=== PATIENT | female | born 1955 | race Caucasian/White ===

== ENCOUNTER 2017-05-03 14:54 | Observation (INO) | payer BC ==
[2017-05-03] MEDS ORDERED: Sodium Chloride 0.9% 1,000 ML IV SCH (15:00)
[2017-05-03] MEDS ORDERED: Aspirin 81 MG Tab.Chew PO ONE (15:00)
--- NOTE | 2017-05-03 15:20 | EDM.PDOC ---
ED HPI GENERAL MEDICAL PROBLEM - General Chief Complaint: Chest Pain Stated Complaint: PT HAS CHEST PAINS Time Seen by Provider: 05/03/17 14:59 Source of Information: Reports: Patient History Limitations: Reports: No Limitations - History of Present Illness INITIAL COMMENTS - FREE TEXT/NARRATIVE: HISTORY AND PHYSICAL: History of present illness: [61-year-old female with a history of high blood pressure high cholesterol with known coronary artery disease and a stent placed [address] Burch at [facility], now presents to the emergency department complaining of chest pain. Prior to arrival patient had left parasternal chest pressure associated with severe nausea and mild diaphoresis. She was not short of breath. She denies pleuritic pain productive cough or fever. She has no history of blood clots are quite hypercoagulability. She has no leg swelling asymmetry or pain. Prior to episode of pain before presentation to the hospital, patient had no prodromal symptoms and was feeling well. His been compliant with her baby aspirin daily and her Effient.] Review of systems: As per history of present illness and below otherwise all systems reviewed and negative. Past medical history: As per history of present illness and as reviewed below otherwise noncontributory. Surgical history: As per history of present illness and as reviewed below otherwise noncontributory. Social history: No reported history of drug or alcohol abuse. Family history: As per history of present illness and as reviewed below otherwise noncontributory. Physical exam: HEENT: Atraumatic, normocephalic, pupils reactive, negative for conjunctival pallor or scleral icterus, mucous membranes moist, throat clear, neck supple, nontender, trachea midline. Lungs: Clear to auscultation, breath sounds equal bilaterally, chest nontender. Heart: S1S2, regular, negative for clicks, rubs, or JVD. Abdomen: Soft, nondistended, nontender. Negative for masses or hepatosplenomegaly. Negative for costovertebral tenderness. Pelvis: Stable nontender. Genitourinary: Deferred. Rectal: Deferred. Extremities: Atraumatic, negative for cords or calf pain. Neurovascular unremarkable. Neuro: Awake, alert, oriented. Cranial nerves grossly unremarkable. Cerebellum unremarkable. Motor and sensory unremarkable throughout. Exam nonfocal. Diagnostics: [EKG with normal sinus rhythm at 68 normal axis no STEMI Chest x-ray unremarkable interpreted by me] Therapeutics: [Aspirin given en route] Impression: [Aspirin] Plan: [Signs and symptoms consistent with chest pain possible cardiac etiology in a 61 -year-old female with a known history of coronary artery disease 2 days status post stent placement. She is currently pain-free and comfortable appearing. EKG unremarkable nonspecific ST and T-wave findings. Workup pending. Anticipate observation telemetry admission with serial enzymes and communication with patient's manager supplier as needed. Workup unremarkable. Patient needs to be well appearing and pain-free. Case discussed with Dr. Burch patient's manager supplier who is very clear that he agrees the patient does not need to be transferred at this time. Discussed with Dr. Luis Montesinos [facility] visual presentation manager who is aware history and findings and agrees with observation admission for serial cardiac enzymes further workup and treatment as needed. Definitive disposition and diagnosis as appropriate pending reevaluation and review of above. Left Chest Pain Score (Numeric/FACES): 1 - Related Data Allergies Allergy/AdvReac Type Severity Reaction Status Date / Time cortisone Allergy Intermediate Blisters Verified 05/03/17 15:37 Sulfa (Sulfonamide Allergy Hives Verified 05/03/17 15:37 Antibiotics) ATROPINE Allergy Intermediate Tachycardia Uncoded 11/11/16 13:38 Home Meds: Home Meds Calcium Carbonate/Vitamin D3 [Calcium 600-Vit D3 800 Tab] 1 each PO BEDTIME 06/20 [History] Carvedilol [Coreg] 12.5 mg PO BID 07/13/16 [History] Cholecalciferol (Vitamin D3) [D-2000] 2,000 unit PO BEDTIME 07/13/16 [History] Multivitamin [Daily Multiple Vitamin] 1 tab PO DAILY 07/13/16 [History] Nitroglycerin [Nitrostat] 0.4 mg SL Q5M PRN 07/13/16 [History] Ubidecarenone/Vitamin E Mixed [Plj81-Wan E 200 mg-20 Unit Sfg] 1 each PO DAILY 07/13/16 [History] atorvaSTATin [Lipitor] 40 mg PO BEDTIME 07/13/16 [History] Albuterol [Ventolin HFA] 2 puff INH QID PRN 05/03/17 [History] Aspirin 81 mg PO BEDTIME 05/03/17 [History] Famotidine 40 mg PO DAILY 05/03/17 [History] Isosorbide Mononitrate [Imdur] 30 mg PO DAILY 05/03/17 [History] Prasugrel HCl [Effient] 10 mg PO DAILY 05/03/17 [History] Past Medical History Cardiovascular History: Reports: High Cholesterol, Hypertension, Stents Psychiatric History: Reports: None - Infectious Disease History Infectious Disease History: Reports: Measles - Past Surgical History Cardiovascular Surgical History: Reports: Carotid Stents, Coronary Artery Bypass Musculoskeletal Surgical History: Reports: Arthroscopic Knee, Other (See Below) Social & Family History - Family History Family Medical History: Noncontributory - Tobacco Use Smoking Status *Q: Never Smoker Second Hand Smoke Exposure: No - Caffeine Use Caffeine Use: Reports: None - Recreational Drug Use Recreational Drug Use: No ED ROS GENERAL - Review of Systems Review Of Systems: See Below (History of present illness) ED EXAM, GENERAL - Physical Exam Exam: See Below (History of present illness) Course - Vital Signs Last Recorded V/S: Last Vital Signs Temp 36.6 C 05/03/17 15:17 Pulse 74 05/03/17 15:17 Resp 18 05/03/17 15:17 BP 167/87 H 05/03/17 15:17 Pulse Ox 96 05/03/17 15:17 - Orders/Labs/Meds Orders: Active Orders 24 hr Category Date Time Status EKG 12 Lead [EKG Documentation Completion] [RC] STAT Care 05/03/17 15:00 Ordered Chest 1V Frontal [CR] Stat Exams 05/03/17 15:00 Ordered Sodium Chloride 0.9% @ 125 MLS/HR (1,000ml) Med 05/03/17 15:00 Ordered Sodium Chloride 0.9% [Normal Saline] 1,000 ml IV ASDIRECTED Peripheral IV Insertion Adult [OM.PC] Stat Oth 05/03/17 15:00 Ordered Medication Orders Sodium Chloride (Normal Saline) 1,000 mls @ 125 mls/hr IV ASDIRECTED MAIA Last Admin: 05/03/17 15:15 Dose: 125 mls/hr Labs: Laboratory Tests 05/03/17 05/03/17 05/03/17 Range/Units 15:12 15:12 15:12 WBC 8.12 (4.0-11.0) K/uL RBC 4.44 (4.30-5.90) M/uL Hgb 13.0 (12.0-16.0) g/dL Hct 38.9 (36.0-46.0) % MCV 87.6 (80.0-98.0) fL MCH 29.3 (27.0-32.0) pg MCHC 33.4 (31.0-37.0) g/dL RDW Std Deviation 42.5 (28.0-62.0) fl RDW Coeff of Izabella 13 (11.0-15.0) % Plt Count 227 (150-400) K/uL MPV 9.30 (7.40-12.00) fL Neut % (Auto) 77.0 (48.0-80.0) % Lymph % (Auto) 16.6 (16.0-40.0) % Traill % (Auto) 6.0 (0.0-15.0) % Eos % (Auto) 0.2 (0.0-7.0) % Baso % (Auto) 0.2 (0.0-1.5) % Neut # (Auto) 6.2 H (1.4-5.7) K/uL Lymph # (Auto) 1.4 (0.6-2.4) K/uL [place]ill # (Auto) 0.5 (0.0-0.8) K/uL Eos # (Auto) 0.0 (0.0-0.7) K/uL Baso # (Auto) 0.0 (0.0-0.1) K/uL Nucleated RBC % 0.0 /100WBC Nucleated RBCs # 0 K/uL Sodium 141 (136-146) mmol/L Potassium 4.0 (3.5-5.1) mmol/L Chloride 107 (98-110) mmol/L Carbon Dioxide 26 (21-31) mmol/L BUN 9 (6.0-23.0) mg/dL Creatinine 0.8 (0.6-1.5) mg/dL Est Cr Clr Drug Dosing 66.45 mL/min Estimated GFR (MDRD) > 60.0 ml/min Glucose 124 H (60-110) mg/dL Calcium 9.5 (8.8-10.8) mg/dL Total Bilirubin 0.7 (0.1-1.5) mg/dL AST 20 (5-40) IU/L ALT 21 (8-54) IU/L Alkaline Phosphatase 91 (40-150) Troponin I < 0.10 (0.0-0.29) NG/ML Total Protein 7.3 (6.0-8.0) g/dL Albumin 4.0 (3.4-4.8) g/dL Globulin 3.3 (2.0-3.5) g/dL Albumin/Globulin Ratio 1.2 L (1.3-2.8) Meds: Medications Generic Name Dose Route Start Last Admin Trade Name Radha PRN Reason Stop Dose Admin Sodium Chloride 1,000 mls @ 125 mls/hr 05/03/17 15:00 05/03/17 15:15 Normal Saline IV 125 mls/hr ASDIRECTED MAIA Administration Discontinued Medications Generic Name Dose Route Start Last Admin Trade Name Radha PRN Reason Stop Dose Admin Aspirin 324 mg 05/03/17 15:00 05/03/17 15:11 Aspirin PO 05/03/17 15:01 Not Given ONETIME ONE Departure - Departure Time of Disposition: 15:22 Disposition: Refer to Observation Condition: Good Clinical Impression: Chest pain - Discharge Information - My Orders Last 24 Hours: My Active Orders 05/03/17 15:00 EKG 12 Lead [EKG Documentation Completion] [RC] STAT Chest 1V Frontal [CR] Stat Sodium Chloride 0.9% @ 125 MLS/HR (1,000ml) Sodium Chloride 0.9% [Normal Saline ] 1,000 ml IV ASDIRECTED Peripheral IV Insertion Adult [OM.PC] Stat - Assessment/Plan Last 24 Hours: My Active Orders 05/03/17 15:00 EKG 12 Lead [EKG Documentation Completion] [RC] STAT Chest 1V Frontal [CR] Stat Sodium Chloride 0.9% @ 125 MLS/HR (1,000ml) Sodium Chloride 0.9% [Normal Saline ] 1,000 ml IV ASDIRECTED Peripheral IV Insertion Adult [OM.PC] Stat
[2017-05-03 15:39] LABS: CHLORIDE,CL 107 mmol/L (98-110); SODIUM,NA 141 mmol/L (136-146)
--- NOTE | 2017-05-03 20:11 | PCM.HP ---
H&P History of Present Illness - General Admit Problem/Dx: Admission Diagnosis/Problem Admission Diagnosis/Problem Chest pain - History of Present Illness Initial Comments - Free Text/Narative: 61 yo female with pmh of fibromyalgia and CAD. Patient had PCI with stents x3 in 2014, and CABG in 2016. She had PCI with stent two days ago by Dr. Burch she was discharged on new medications of prasugrel and imdur. Today she has a headache with nausea. She reported to the ED as she was concerned that this could be signs of heart problems per her written discharge education materials. She also reports intermittent sensations in her chest which she describes as odd sensation of squeezing which are brief in nature. She has tolerated imdur and prasugrel well in the past. She denies any shortness of breath, diaphoresis or cough. Inital EKG and cardiac enzymes are negative. Dr. Webster called Dr. Burch who recommended observation overnight. Left Chest Pain Score (Numeric/FACES): 6 - Related Data Allergies/Adverse Reactions: Allergies Allergy/AdvReac Type Severity Reaction Status Date / Time cortisone Allergy Intermediate Blisters Verified 05/03/17 15:37 Sulfa (Sulfonamide Allergy Hives Verified 05/03/17 15:37 Antibiotics) ATROPINE Allergy Intermediate Tachycardia Uncoded 11/11/16 13:38 Home Medications: Home Meds Calcium Carbonate/Vitamin D3 [Calcium 600-Vit D3 800 Tab] 1 each PO BEDTIME 06/20 [History] Carvedilol [Coreg] 12.5 mg PO BID 07/13/16 [History] Cholecalciferol (Vitamin D3) [D3-2000] 5,000 unit PO BEDTIME 07/13/16 [History] Multivitamin [Daily Multiple Vitamin] 1 tab PO DAILY 07/13/16 [History] Nitroglycerin [Nitrostat] 0.4 mg SL Q5M PRN 07/13/16 [History] Ubidecarenone/Vitamin E Mixed [Ena21-Ica E 200 mg-20 Unit Sfg] 1 each PO DAILY 07/13/16 [History] atorvaSTATin [Lipitor] 40 mg PO BEDTIME 07/13/16 [History] Albuterol [Ventolin HFA] 2 puff INH QID PRN 05/03/17 [History] Aspirin 81 mg PO BEDTIME 05/03/17 [History] Famotidine 40 mg PO DAILY 05/03/17 [History] Isosorbide Mononitrate [Imdur] 30 mg PO DAILY 05/03/17 [History] Prasugrel HCl [Effient] 10 mg PO DAILY 05/03/17 [History] Past Medical History Cardiovascular History: Reports: High Cholesterol, Hypertension, Stents Psychiatric History: Reports: None - Infectious Disease History Infectious Disease History: Reports: Measles - Past Surgical History Cardiovascular Surgical History: Reports: Carotid Stents, Coronary Artery Bypass GI Surgical History: Reports: Appendectomy Female Surgical History: Reports: D&C, Hysterectomy Musculoskeletal Surgical History: Reports: Arthroscopic Knee, Other (See Below) Social & Family History - Family History Family Medical History: Noncontributory - Tobacco Use Smoking Status *Q: Never Smoker Second Hand Smoke Exposure: No - Caffeine Use Caffeine Use: Reports: Coffee - Recreational Drug Use Recreational Drug Use: Yes Drug Use in Last 12 Months: Yes Recreational Drug Type: Reports: Marijuana/Hashish Recreational Drug Use Frequency: Daily H&P Review of Systems - Review of Systems: Review Of Systems: ROS reveals no pertinent complaints other than HPI. Psychiatric: Denies: Depression, Mood Lability, Suicidal Ideation Exam - Exam Exam: See Below - Vital Signs Vital Signs: Last Vital Signs Temp 36.6 C 05/03/17 17:15 Pulse 77 05/03/17 17:15 Resp 14 05/03/17 17:15 BP 133/68 05/03/17 17:15 Pulse Ox 97 05/03/17 17:15 Weight: 86.999 kg - Exam General: Alert, Oriented, 4 HEENT: Mucosa Moist & [place], Posterior Pharynx Clear Neck: Supple, Trachea Midline, 2 Lungs: Clear to Auscultation, Normal Respiratory Effort Cardiovascular: Regular Rate, Regular Rhythm GI/Abdominal Exam: Normal Bowel Sounds, Soft, Non-Tender, No Organomegaly, No Distention, No Abnormal Bruit, No Mass, Pelvis Stable Extremities: Non-Tender, No Pedal Edema Skin: Warm, Dry, Intact - Patient Data Result Diagrams: 05/03/17 15:12 05/03/17 15:12 *Q Meaningful Use (ADM) - VTE *Q VTE Criteria *Q: - Stroke *Q Stroke Criteria *Q: - AMI *Q AMI Criteria *Q: Problem List Initiated/Reviewed/Updated: Yes Orders Last 24hrs: Active Orders 24 hr Category Date Time Status Telemetry Monitoring [Cardiac Monitoring] [RC] Q8H Care 05/03/17 17:39 Active Heart Healthy Diet [DIET] Diet 05/03/17 Dinner Active DRUG SCREEN, URINE [URCHEM] Routine Lab 05/03/17 18:25 Uncollected TROPONIN I [CHEM] Q6H Lab 05/03/17 21:12 Ordered TROPONIN I [CHEM] Q6H Lab 05/04/17 03:12 Ordered Acetaminophen [Tylenol] Med 05/03/17 17:44 Active 650 mg PO Q4H PRN Medication Orders Acetaminophen (Tylenol) 650 mg PO Q4H PRN PRN Reason: Pain Sodium Chloride (Normal Saline) 1,000 mls @ 125 mls/hr IV ASDIRECTED [facility] Last Admin: 05/03/17 15:15 Dose: 125 mls/hr Assessment/Plan Comment:: 61 yo female with pmh of CAD recent PCI who presents with chest pain. We will monitor overnight on telemetry and trend cardiac enzymes.
[2017-05-03] MEDS ORDERED: Albuterol 8 GM Inhaler INH PRN (20:20)
[2017-05-03] MEDS ORDERED: Ondansetron 4 MG/2 ML SDV IVPUSH PRN (20:22)
[2017-05-03] MEDS: Carvedilol 12.5 MG Tab PO SCH (20:41)
[2017-05-03] MEDS ORDERED: atorvaSTATin 40 MG Tab PO SCH (21:00)
[2017-05-03] MEDS ORDERED: Aspirin 81 MG Tab.Chew PO SCH (21:00)
[2017-05-04] MEDS: Acetaminophen 325 MG Tab PO PRN ×2 (04:01→10:52)
[2017-05-04] MEDS: Carvedilol 12.5 MG Tab PO SCH (08:14)
[2017-05-04] MEDS ORDERED: Famotidine 20 MG Tab PO SCH (09:00)
[2017-05-04] MEDS ORDERED: PRASUGREL HCL 10 MG PO SCH (09:00)
[2017-05-04] MEDS ORDERED: Enoxaparin 40 MG/0.4 ML Syringe SUBCUT SCH (09:00)
[2017-05-04] MEDS ORDERED: Isosorbide Mononitrate 30 MG Tab.ER PO SCH (09:00)
[2017-05-04 11:57] VITALS: BP 107/63
--- NOTE | 2017-05-04 13:52 | CR ---
EXAM DATE: 05/03/17 PATIENT'S AGE: 61 Patient: CESAR OTT Facility: [place], [place] Site . Site : [id number] Study: XRay Chest [id number]/30/2017 3:48:17 PM Ordering Physician: Darin Guzman Final Report: INDICATION: Chest pain. Technique: Portable chest. Findings: Status post median sternotomy. Heart and mediastinum are normal in size. Pulmonary vessels are normal. Lungs are clear. No pleural fluid. No acute bony abnormality. Impression: No acute chest disease. Dictated by Ashanti Lam MD @ May 03 2017 4:21PM (Electronic Signature) Report Signed by Proxy. [facility]OLDW[facility] SPECIALTY HOSPITALJose Martin
--- NOTE | 2017-05-07 14:18 | PCM.DCSUM1 ---
Discharge Summary - Hospital Course Free Text/Narrative:: Admission diagnoses: #1. Chest pain Discharge diagnoses: #1 chest pain, resolved #2. Headache 61-year-old female who was admitted after presenting to the emergency room with chest pain. CBC, CMP, serial troponins x3, urine drug screen, chest x-ray were all within normal limits or unremarkable. EKG showed normal sinus rhythm. Patient was admitted and placed on telemetry with no cardiac events appreciated. She was in normal sinus rhythm throughout admission. Her vital signs are stable throughout admission. Patient did not require any doses of nitroglycerin and her pain medications for pain relief during admission. Patient was continued on her Imdur and noted that after taking each dose she would experience a headache. She had been on Imdur in the past and it never experienced these symptoms previously. She was hesitant to stop the medication completely as she had been put on it by her vending mechanic, Dr. Burch. Patient was going to contact his office to see if she can half the dose or perhaps stop the medication following discharge. Patient was continued on Effient and aspirin while admitted for dual antiplatelet therapy. Prior to admission the patient had just had cardiac stents placed by Dr. Burch 2 days previous. At the time of discharge, the patient did not have any chest pain, palpitations, shortness of breath, nausea, vomiting, constipation, diarrhea, fever, numbness/tingling/ weakness in the upper and lower extremities bilaterally. She was ambulating without assistance, voiding appropriately and tolerating oral intake. - Discharge Data Discharge Date: 05/04/17 Discharge Disposition: Home, Self-Care 01 Condition: Fair - Discharge Diagnosis/Problem(s) (1) Chest pain SNOMED Code(s): 65984890 ICD Code: R07.9 - CHEST PAIN, UNSPECIFIED Status: Acute - Patient Instructions Diet: Heart Healthy Diet Activity: As Tolerated Driving: May Drive Today Showering/Bathing: May Shower Notify Provider of: Fever, Increased Pain, Nausea and/or Vomiting - Discharge Plan Home Medications: Home Meds Calcium Carbonate/Vitamin D3 [Calcium 600-Vit D3 800 Tab] 1 each PO BEDTIME 06/20 [History] Carvedilol [Coreg] 12.5 mg PO BID 07/13/16 [History] Cholecalciferol (Vitamin D3) [D3-2000] 5,000 unit PO BEDTIME 07/13/16 [History] Multivitamin [Daily Multiple Vitamin] 1 tab PO DAILY 07/13/16 [History] Nitroglycerin [Nitrostat] 0.4 mg SL Q5M PRN 07/13/16 [History] Ubidecarenone/Vitamin E Mixed [Bdk26-Tty E 200 mg-20 Unit Sfg] 1 each PO DAILY 07/13/16 [History] atorvaSTATin [Lipitor] 40 mg PO BEDTIME 07/13/16 [History] Albuterol [Ventolin HFA] 2 puff INH QID PRN 05/03/17 [History] Aspirin 81 mg PO BEDTIME 05/03/17 [History] Famotidine 40 mg PO DAILY 05/03/17 [History] Isosorbide Mononitrate [Imdur] 30 mg PO DAILY 05/03/17 [History] Prasugrel HCl [Effient] 10 mg PO DAILY 05/03/17 [History] Patient Handouts: Nonspecific Chest Pain, [id number] Referrals: Carlos Burch MD [Ordering Only Provider] - 05/18/17 1:15 pm - Discharge Summary/Plan Comment DC Time >30 min.: No Discharge Summary/Plan Comment: Admission diagnoses: #1. Chest pain status post recent stent placement Discharge diagnoses: #1 chest pain status post recent stent placement, resolved #2. Headache 61-year-old female who was admitted after presenting to the emergency room with chest pain. CBC, CMP, serial troponins x3, urine drug screen, chest x-ray were all within normal limits or unremarkable. EKG showed normal sinus rhythm. Patient was admitted and placed on telemetry with no cardiac events appreciated. She was in normal sinus rhythm throughout admission. Her vital signs are stable throughout admission. Patient did not require any doses of nitroglycerin and her pain medications for pain relief during admission. Patient was continued on her Imdur and noted that after taking each dose she would experience a headache. She had been on Imdur in the past and it never experienced these symptoms previously. She was hesitant to stop the medication completely as she had been put on it by her vending mechanic, Dr. Burch. Patient was going to contact his office to see if she can half the dose or perhaps stop the medication following discharge. Patient was continued on Effient and aspirin while admitted for dual antiplatelet therapy. Prior to admission the patient had just had cardiac stents placed by Dr. Burch 2 days previous. At the time of discharge, the patient did not have any chest pain, palpitations, shortness of breath, nausea, vomiting, constipation, diarrhea, fever, numbness/tingling/ weakness in the upper and lower extremities bilaterally. She was ambulating without assistance, voiding appropriately and tolerating oral intake. Discharge plan: #1. Home medications were resumed including Effient #2. Patient will contact Dr. Interiano office to discuss the dosing of her Imdur. #3. Patient has an appointment with Dr. Burch on May 18, 2017. - Patient Data Vitals - Most Recent: Last Vital Signs Temp 97.5 F 05/04/17 11:56 Pulse 80 05/04/17 11:56 Resp 18 05/04/17 11:56 BP 107/63 05/04/17 11:56 Pulse Ox 99 05/04/17 11:56 Weight - Most Recent: 191 lb 12.8 oz Med Orders - Current: Current Medications Discontinued Medications Acetaminophen (Tylenol) 650 mg PO Q4H PRN PRN Reason: Pain Last Admin: 05/04/17 10:52 Dose: 650 mg Albuterol (Ventolin Hfa) 0 gm INH QID PRN PRN Reason: Wheezing Aspirin (Aspirin) 324 mg PO ONETIME ONE Stop: 05/03/17 15:01 Last Admin: 05/03/17 15:11 Dose: Not Given Aspirin (Aspirin) 81 mg PO BEDTIME [facility] Last Admin: 05/03/17 21:33 Dose: Not Given Atorvastatin Calcium (Lipitor) 40 mg PO BEDTIME [facility] Last Admin: 05/03/17 20:41 Dose: 40 mg Carvedilol (Coreg) 12.5 mg PO BID [facility] Last Admin: 05/04/17 08:14 Dose: 12.5 mg Enoxaparin Sodium (Lovenox) 40 mg SUBCUT DAILY [facility] Last Admin: 05/04/17 08:13 Dose: 40 mg Famotidine (Pepcid) 40 mg PO DAILY [facility] Last Admin: 05/04/17 08:14 Dose: 40 mg Sodium Chloride (Normal Saline) 1,000 mls @ 125 mls/hr IV ASDIRECTED [facility] Last Admin: 05/03/17 15:15 Dose: 125 mls/hr Isosorbide Mononitrate (Imdur) 30 mg PO DAILY [facility] Last Admin: 05/04/17 08:15 Dose: 30 mg Ondansetron HCl (Zofran) 4 mg IVPUSH Q4H PRN PRN Reason: Nausea Prasugrel Hcl [ (Effient] 10 Mg) 1 each PO DAILY [facility] Last Admin: 05/04/17 08:15 Dose: Not Given *Q Meaningful Use (DIS) - VTE *Q VTE Criteria *Q: - Stroke *Q Stroke Criteria *Q: - AMI *Q AMI Criteria *Q:
== END 2017-05-04 13:45 | disposition home or self-care (01) ==
LOC: MW.ED 14:54 → MW.MS 16:44
PROVIDERS: ADMIT Internal Medicine; ATTEND Internal Medicine
DX: R07.9 Chest pain, unspecified (principal); I25.10 Atherosclerotic heart disease of native coronary artery without angina pectoris; M79.7 Fibromyalgia; I10 Essential (primary) hypertension; E78.00 Pure hypercholesterolemia, unspecified; Z88.2 Allergy status to sulfonamides; Z88.8 Allergy status to other drugs, medicaments and biological substances; Z79.02 Long term (current) use of antithrombotics/antiplatelets; Z79.82 Long term (current) use of aspirin; Z79.899 Other long term (current) drug therapy; Z95.1 Presence of aortocoronary bypass graft; Z90.49 Acquired absence of other specified parts of digestive tract; Z90.710 Acquired absence of both cervix and uterus; Z98.890 Other specified postprocedural states
CPT/HCPCS: 36415; 71010; 80053; 80305; 84484; 85025; 93005; 96360; 96361; 99285; A9270; J1650; J7040; 96372; G0378